=== PATIENT | female | born 1995 | race American Indian/Alaskan Native ===

== ENCOUNTER 2021-10-12 02:24 | Emergency (ER) | payer MEDICAID ==
[2021-10-12 04:51] LABS: Color,Urine Yellow (Yellow)
[2021-10-12 04:52] LABS: HCG Qualitative,Urine Negative (Negative); Mucus,Urine 1+ /HPF
[2021-10-12 05:04] LABS: Basophils # (Auto) 0.1 K/mm3 (0.0-0.1); Basophils % (Auto) 0.9 % (0.0-1.8); Eosinophils # (Auto) 0.1 K/mm3 (0.0-0.4); Hematocrit 39.7 % (30.3-42.9); Hemoglobin 13.9 gm/dl (10.1-14.3); Lymphocytes # (Auto) 3.4 K/mm3 (1.2-5.4); Lymphocytes % (Auto) 38.2 % (13.4-35.0); Mean Corpuscular HGB Conc 35 % (30-34); Mean Corpuscular Volume 94 fl (79-97); Monocytes # (Auto) 0.6 K/mm3 (0.0-0.8); Monocytes % (Auto) 7.1 % (0.0-7.3); Platelet Count 290 K/mm3 (140-440); Red Blood Count 4.22 M/mm3 (3.65-5.03); Red Cell Distribution Width 13.7 % (13.2-15.2)
[2021-10-12] MEDS ORDERED: KETOROLAC 10 MG TAB PO ONE (07:33)
[2021-10-12] MEDS ORDERED: predniSONE 20 MG TAB PO ONE (07:33)
[2021-10-12] MEDS ORDERED: ACETAMINOPHEN W/CODEINE 300-30 MG TAB PO ONE (07:33)
[2021-10-12 08:04] VITALS: BP 139/90
--- NOTE | 2021-10-12 08:21 | Emergency Department Report ---
ED Chest Pain HPI - General Chief Complaint: Abdominal Pain Stated Complaint: CHEST PAIN/AB PAIN Time Seen by Provider: 10/12/21 07:10 Source: patient Mode of arrival: Ambulatory Limitations: No Limitations - History of Present Illness Initial Comments: 25-year-old black female with no past medical history presents to the emergency department for evaluation of 1 day history of chest pain. She states that she developed chest pain and 1 day ago when he has been intermittent since then. She denies shortness of breath, dizziness, nausea, vomiting, and diaphoresis. She states that pain is worse with movement and palpation. She denies fever and sick contacts. MD Complaint: chest pain -: Gradual, days(s) (1) Pain Location: substernal, left chest Pain Radiation: none Severity: mild, severe Severity scale (0 -10): 9 Quality: aching Consistency: intermittent Worsens With: palpation, movement re: denies: nausea, vomting, diaphoresis, dyspnea, sense of impending doom Other Symptoms: denies: cough, fever, syncope, rash, acid taste in mouth, leg swelling, palpitations, burping Treatments Prior to Arrival: none Aspirin use within the Past 7 Days: (0) No - Related Data On Oral Contraceptives: No Previous Rx's Medication Instructions Recorded Last Taken Type Ketorolac [Toradol] 10 mg PO Q6H PRN #12 tab 10/12/21 Unknown Rx Allergies Allergy/AdvReac Type Severity Reaction Status Date / Time No Known Allergies Allergy Unverified 10/12/21 04:13 Heart Score - HEART Score History: Slightly suspicious EKG: Normal Age: < 45 Risk factors: 1-2 risk factors Troponin: < normal limit HEART Score: 1 - EKG Read Time Time EKG Completed: 04:31 EKG Read Time: 08:00 - Critical Actions Critical Actions: 0-3 pts:0.9-1.7%risk of adverse cardiac event.Candidate for discharge ED Review of Systems ROS: Stated complaint: CHEST PAIN/AB PAIN Other details as noted in HPI Comment: All other systems reviewed and negative Constitutional: denies: chills, fever Respiratory: denies: shortness of breath, SOB with exertion Cardiovascular: chest pain. denies: palpitations Gastrointestinal: denies: abdominal pain, nausea, vomiting Genitourinary: denies: urgency, dysuria Musculoskeletal: denies: back pain Neurological: denies: headache, weakness ED Past Medical Hx - Past Medical History Previous Medical History?: No - Surgical History Past Surgical History?: No - Social History Smoking Status: Smoker, Current Status Unknown Substance Use Type: Alcohol - Medications Home Medications: Home Medications Medication Instructions Recorded Confirmed Last Taken Type Ketorolac [Toradol] 10 mg PO Q6H PRN #12 tab 10/12/21 Unknown Rx ED Physical Exam - General Limitations: No Limitations General appearance: alert, in no apparent distress - Head Head exam: Present: atraumatic, normocephalic - Eye Eye exam: Present: normal appearance. Absent: conjunctival injection, periorbital swelling, periorbital tenderness - ENT ENT exam: Present: normal exam, normal orophraynx - Neck Neck exam: Present: normal inspection, full ROM. Absent: tenderness, lymphadenopathy - Respiratory Respiratory exam: Present: normal lung sounds bilaterally, chest wall tenderness. Absent: respiratory distress, wheezes, rales, rhonchi, stridor - Cardiovascular Cardiovascular Exam: Present: regular rate, normal heart sounds - GI/Abdominal GI/Abdominal exam: Present: soft, normal bowel sounds. Absent: distended, tenderness, guarding, rebound, rigid - Extremities Exam Extremities exam: Present: normal inspection, full ROM, normal capillary refill. Absent: tenderness, pedal edema, joint swelling, calf tenderness - Back Exam Back exam: Present: normal inspection. Absent: CVA tenderness (R), CVA tenderness (L) - Neurological Exam Neurological exam: Present: alert, oriented X3, CN II-XII intact, normal gait, reflexes normal. Absent: motor sensory deficit - Psychiatric Psychiatric exam: Present: normal affect, normal mood - Skin Skin exam: Present: warm, dry, intact, normal color ED Course Vital Signs 10/12/21 10/12/21 04:08 07:54 Temperature 98.6 F 98.1 F Pulse Rate 92 H 89 Respiratory 16 16 Rate Blood Pressure 139/90 Blood Pressure 140/96 [Right] O2 Sat by Pulse 100 100 Oximetry WENDY score - Wendy Score Age > 65: (0) No Aspirin use within the Past 7 Days: (0) No 3 or more CAD Risk Factors: (0) No 2 or more Angina events in past 24 hrs: (1) Yes Known CAD with more than 50% Stenosis: (0) No Elevated Cardiac Markers: (0) No ST Deviation Greater than 0.5mm: (0) No WENDY Score: 1 ED Medical Decision Making - Lab Data Result diagrams: 10/12/21 04:47 - EKG Data Interpretation: no acute changes, normal EKG - Radiology Data Radiology results: report reviewed, image reviewed - Medical Decision Making 25-year-old black female with no past medical history presents to the emergency department for evaluation of 1 day history of chest pain. She states that she developed chest pain and 1 day ago when he has been intermittent since then. She denies shortness of breath, dizziness, nausea, vomiting, and diaphoresis. She states that pain is worse with movement and palpation. She denies fever and sick contacts. Physical exam unremarkable. Work-up unremarkable. Patient will be discharged home with Toradol to use as needed and directed to follow-up with her primary care provider if no improvement or worsening symptoms and return to the emergency department as needed. She verbalizes understanding of and agreement with plan of care. Critical care attestation.: If time is entered above; I have spent that time in minutes in the direct care of this critically ill patient, excluding procedure time. ED Disposition Clinical Impression: Abdominal cramping, Leg cramping Chest pain Qualifiers: Chest pain type: unspecified Qualified Code(s): R07.9 - Chest pain, unspecified Disposition: 01 HOME / SELF CARE / HOMELESS Is pt being admited?: No Does the pt Need Aspirin: No Condition: Stable Instructions: Muscle Cramps and Spasms, [id number], Abdominal Pain, Adult, [id number], Nonspecific Chest Pain, Adult, [id number], Abdominal Pain (ED) Additional Instructions: Take medications as prescribed. Follow up with your primary care provider if no improvement or worsening symptoms. Return to ED as needed. Prescriptions: Ketorolac [Toradol] 10 mg PO Q6H PRN #12 tab PRN Reason: Pain Referrals: HANNA LEBLANC MD [Staff Physician] - 3-5 Days Forms: Work/School Release Form(ED) Time of Disposition: 08:20
--- NOTE | 2021-10-13 09:51 | Electrocardiograph Report ---
[facility] Test Date: 2021-10-12 Test Time: 04:31:09 Pat Name: JASPER BRYANT Department: Room: Gender: F Skip Miner: CANDIE : 1995 Requested By: MELISSA ROSENBERG Order Number: [id number] Reading MD: Ki Pritchett Measurements Intervals [place] Rate: 83 P: 62 UT: 188 QRS: 66 QRSD: 75 T: 40 QT: 345 QTc: 405 Interpretive Statements Sinus rhythm No previous ECG available for comparison Electronically Signed On 10-13-2021 9:50:43 EDT by Ki Pritchett
== END 2021-10-12 08:45 | disposition home or self-care (01) ==
LOC: ED 02:24
DX: R07.89 Other chest pain (principal); R10.9 Unspecified abdominal pain; M79.606 Pain in leg, unspecified; F17.200 Nicotine dependence, unspecified, uncomplicated; Z72.89 Other problems related to lifestyle; Z79.899 Other long term (current) drug therapy
CPT/HCPCS: 36415; 81001; 81025; 83880; 84484; 85025; 93005; 99283